=== PATIENT | male | born 1965 | race Caucasian/White ===

== ENCOUNTER 2020-04-12 12:39 | Outpatient (CLI) | payer OTHER, SELFPAY ==
--- NOTE | 2020-04-12 12:42 | CT_ITS ---
WS: [id number] LDCT LUNG CANCER SCREENING HISTORY: TOBACCO ABUSE TECHNIQUE: Axial imaging performed from the apices to 1 cm below the costophrenic angles. Coronal and sagittal reformats are submitted with axial MIP series. All CT scans at [facility] use at least one of these dose optimization techniques: automated exposure control; mA and/or kV adjustment per patient size (includes targeted exams where dose is matched to clinical indication); or iterativ e reconstruction. DLP: 61.71 mGy.cm DIvol: 1.58 mGy COMPARISON: None available. Diagnostic quality: Satisfactory Lung Nodules: No noncalcified pulmonary nodules. 3 mm granuloma which is calcified in the posterior L EFT upper lobe. No groundglass attenuation or endobronchial lesions. Lungs: Mild hyperinflation from emphysema. No pneumonia. Heart: Mild enlargement of the heart. There is extensive calcification involving a large portion of t he LEFT main, LEFT anterior descending and circumflex coronary artery. Other findings: Prior cholecystectomy. CT/CT lung screening G0297 IMPRESSION: LUNG-RADS: 1S-Negative with Significant Findings FOLLOW UP: 12 Month: Continue annual screening with LDCT OTHER FINDINGS (S MODIFIER): Significant coronary artery atherosclerosis. Consi johanny evaluation by cardiology.
== END 2020-04-12 12:40 | disposition home or self-care (01) ==
LOC: RAD 12:40
PROVIDERS: PCP Internal Medicine; Visit Provider Internal Medicine
DX: Z12.2 Encounter for screening for malignant neoplasm of respiratory organs (principal); F17.200 Nicotine dependence, unspecified, uncomplicated; I25.10 Atherosclerotic heart disease of native coronary artery without angina pectoris
CPT/HCPCS: G0297

== ENCOUNTER 2021-07-14 11:52 | Outpatient (CLI) | payer OTHER, SELFPAY ==
--- NOTE | 2021-07-14 12:02 | CT_ITS ---
WS: [id number] LDCT LUNG CANCER SCREENING HISTORY: NICOTINE DEPENDENCE,CIGARETTES TECHNIQUE: Axial imaging performed from the apices to 1 cm below the costophrenic angles. Coronal and sagittal reformats are submitted with axial MIP series. All CT scans at [facility] use at least one of these dose optimization techniques: automated exposure control; mA and/or kV adjustment per patient size (includes targeted exams where dose is matched to clinical indication); or iterativ e reconstruction. DLP: 87.3 mGy-cm. DIvol: 1.58 COMPARISON: 04/12/2020 Diagnostic quality: Satisfactory Lung Nodules: There is a 3 mm nodule which may be calcified in the periphery of the LEFT lower lobe, image 140 of series 4. May have been present on the prior study but due to volume averaging not image d. This is a very small nodule. There is an additional 3 mm nodule which is not calcified on image 12 5 series 4 LEFT lower lobe. This is also stable. Benign granuloma LEFT upper lobe. There is a thin se ptation through the proximal RIGHT mainstem bronchus. Lungs: Hyperexpanded from emphysema. Heart: Heart is very mildly enlarged. No effusion. Other findings: No adenopathy. Mild atherosclerosis aorta. Normal size pulmonary artery. There is ext ensive coronary artery atherosclerosis. CT/CT lung screening [id number] IMPRESSION: LUNG-RADS: 2S-Benign Appearance or Behavior with Significant Findings FOLLOW UP: 12 Month: Continue annual screening with LDCT OTHER FINDINGS (S MODIFIER): There is extensive coronary artery atherosclerosis . Most significant in the LEFT anterior descending and LEFT circumflex coronary artery. Consider evaluation by cardiology.
== END 2021-07-14 11:53 | disposition home or self-care (01) ==
LOC: RAD 11:54
PROVIDERS: PCP Internal Medicine; Visit Provider Internal Medicine
DX: Z12.2 Encounter for screening for malignant neoplasm of respiratory organs (principal); F17.200 Nicotine dependence, unspecified, uncomplicated; Z11.52 Encounter for screening for COVID-19
CPT/HCPCS: 71271; 87635

== ENCOUNTER 2021-07-21 07:32 | Day surgery (SDC) | payer OTHER, SELFPAY ==
[2021-07-17 10:55] VITALS: BMI 25.7
--- NOTE | 2021-07-21 07:59 | P.ANESASSM_ITS ---
Pre-Anesthetic Assessment Height/Weight: Height 1.83 m Weight 86.183 kg Preop Diagnosis: diagnostic Operation Date: 07/21/21 09:00 Proposed Procedures p Colonoscopy 88346/z12.11/z86.010(Not Applicable) - George Fishman MD Familial anesthetic complications: none Was Beta Genet taken within 24 hours: Yes Was Clonidine taken within 24 hours: N/A Last intake: 07/20/21 Social No alcohol and No tobacco Exam alert, oriented x 3, clear to auscultation bilaterally and regular rate & rhythm Airway Submandibular: within normal limits Cervical ROM: within normal limits Mallampati: Class III Dentition: chipped Pulmonary Sleep Apnea CV/HEM Hypertension and Myocardial Infarction (S/P PTCA) METS > 4 None reported Hepatic None reported GI None reported Metabolic None reported Musc/skel None reported Neuropsych Bipolar Anesthetic Plan Anesthesia: Anesthesia Evaluation and MAC Other: I discussed with the patient risks, goals, and benefits of MAC and general anest hesia. We discussed spectrum of MAC anesthesia including conversion to general as well as possibility of recall of intraoperative stimuli including discomfort/pain. Patient agrees to proceed with MAC. Risk of > 500 ml blood loss (7ml/kg in children): No Medications/Allergies Home Medications Medication Instructions Recorded Confirmed Last Taken Type aspirin 81 mg tablet,delayed 81 mg PO DAILY 10/18/19 07/17/21 07/20/21 History release (Adult Low Dose Aspirin) levothyroxine 50 mcg tablet 50 mcg PO DAILY 10/18/19 07/17/21 07/20/21 History (Synthroid) tamsulosin 0.4 mg capsule 0.4 mg PO DAILY 10/18/19 07/17/21 07/20/21 History nicotine See Rx Instructions TRANSDERMAL 02/10/21 07/17/21 Unknown Rx 21mg/24hr-14mg/24hr-7mg/24hr daily .COMPLEX #56 patch transderm patches,sequentl atorvastatin 20 mg tablet 20 mg PO DAILY #90 tab 05/19/21 07/17/21 07/20/21 Rx lisinopril 5 mg tablet 5 mg PO DAILY #90 tab 05/19/21 07/17/21 07/21/21 Rx metoprolol succinate 25 mg 25 mg PO DAILY #90 tab 05/19/21 07/17/21 07/20/21 Rx tablet,extended release 24 hr Allergies Allergy/AdvReac Type Severity Reaction Status Date / Time No Known Allergies Allergy Verified 07/17/21 10:53 [facility] Anesthesia Medical History Arteriosclerosis of coronary artery Bipolar disorder HTN (hypertension) Hypercholesterolemia VENKAT (obstructive sleep apnea) Surgical History History of colonoscopy 2015 History of esophagogastroduodenoscopy S/P PTCA (percutaneous transluminal coronary angioplasty) Status post laparoscopic cholecystectomy Family History Other CAD (coronary artery disease) Cancer Diabetes Family history of premature coronary artery disease Hyperlipidemia Hypertension Denies family history of Dementia Chronic kidney disease (CKD) Lung disease Stroke Social History Smoking and tobacco status: former smoker Alcohol intake: current Alcohol intake frequency: holidays/special occasions only Data Anesthesia Cardiac Studies: No Data to Display
[2021-07-21 08:15] VITALS: BP 125/71; PULSE 71; RESP 18; TEMP 36.3; O2SAT 98
[2021-07-21] MEDS: sodium chloride 0.9% 1,000 ML 30 ML IV (08:22)
--- NOTE | 2021-07-21 08:52 | W.PM.OPSFHP ---
Same Day Surgery H&P Indication for Procedure/HPI DATE OF PROCEDURE: July 21, 2021 CHIEF COMPLAINT/INDICATIONFOR SURGICAL PROCEDURE: colonoscopy PREOP DIAGNOSIS: diagnostic PLANNED PROCEDURE: Operation Date: 07/21/21 09:00 Proposed Procedures p Colonoscopy 51115/z12.11/z86.010(Not Applicable) - George Fishman MD Medications/Allergies* Home Medications Medication Instructions Recorded Confirmed Type aspirin 81 mg tablet,delayed 81 mg PO DAILY 10/18/19 07/17/21 History release (Adult Low Dose Aspirin) levothyroxine 50 mcg tablet 50 mcg PO DAILY 10/18/19 07/17/21 History (Synthroid) tamsulosin 0.4 mg capsule 0.4 mg PO DAILY 10/18/19 07/17/21 History Allergies/Adverse Reactions Allergy/AdvReac Type Severity Reaction Status Date / Time No Known Allergies Allergy Verified 07/17/21 10:53 Current Medications: Generic Name Dose Route Start Last Admin Trade Name Freq PRN Reason Stop Dose Admin Sodium Chloride 1,000 mls @ 30 mls/hr 07/21/21 07:45 07/21/21 08:22 Sodium Chloride 0.9% IV 07/22/21 07:44 30 mls/hr .Q24H VERNELL Administration Pertinent History/Comorbid Conditions* Medical History (Updated 06/13/21 @ 13:35 by George Fishman MD) Arteriosclerosis of coronary artery Bipolar disorder HTN (hypertension) Hypercholesterolemia VENKAT (obstructive sleep apnea) Surgical History (Updated 06/13/21 @ 13:35 by George Fishman MD) History of colonoscopy 2015 History of esophagogastroduodenoscopy S/P PTCA (percutaneous transluminal coronary angioplasty) Status post laparoscopic cholecystectomy Family History (Updated 05/08/20 @ 15:08 by Mulu Kennedy RN) Diabetes CAD (coronary artery disease) Hyperlipidemia Family history of premature coronary artery disease Cancer Hypertension Denies family history of Dementia Chronic kidney disease (CKD) Lung disease Stroke Social History Smoking and tobacco status: former smoker Alcohol intake: current Alcohol intake frequency: holidays/special occasions only Pertinent Exam Findings alert, oriented x 3 and regular rate & rhythm Recommendations Surgery/Procedure today Coding Level of Care Code Acute 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
[2021-07-21 09:17] VITALS: BP 88/68; PULSE 76; RESP 18; TEMP 36.1; O2SAT 97
--- NOTE | 2021-07-21 09:33 | ECG_ITS ---
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 Measurements Intervals [place] Rate: 67 P: 0 [place]: 171 QRS: 5 QRSD: 94 T: -17 QT: 411 QTc: 437 Interpretive Statements SINUS RHYTHM MODERATE ST DEPRESSION [0.05+ mV ST DEPRESSION] Compared to ECG 01/28/2016 10:51:01 ST (T wave) deviation now present Electronically Signed On 07-21-2021 22:03:58 CDT by Erlin Benites M.D. [email or web address] [facility].ZPower/store/OM/[id number]/[id number]
[2021-07-21 09:35] VITALS: BP 107/68; PULSE 77; RESP 18; TEMP 36.1; O2SAT 100
--- NOTE | 2021-07-21 09:37 | PC.NURSE ---
patient post colonoscopy waking up started complaining of burning chest pain blood pressure 98/[address] Fishman notified. Ekg obtained and order for tums. Will let anesthesia know of issues.
[2021-07-21 09:51] VITALS: BP 127/74; PULSE 74; RESP 18; TEMP 36.1; O2SAT 100
--- NOTE | 2021-07-21 09:51 | PC.NURSE ---
informed Dr. Guzman of events and EKG given to him. Dr. Guzman to see patient before discharging.
[2021-07-21] MEDS: calcium carbonate 500 mg Chew Tablet 1000 MG PO (09:58)
--- NOTE | 2021-07-21 10:11 | PC.NURSE ---
patient blood pressure 127/74 heart rate 70. Patient states chest burning is gone some burning in the abdomen. Patient received tums per orders. Awaiting Dr. Guzman to see patient before discharging home.
--- NOTE | 2021-07-21 12:04 | ANE.PACU2 ---
Inpatient post-anesthesia follow up: Airway intact: Yes Vital signs: Temperature 97 F Pulse Rate 74 Respiratory Rate 18 Blood Pressure 127/74 Pulse Oximetry 100 Oxygen Delivery Me thod Room Air Oxygen Flow Rate Fraction of Inspir ed Oxygen Hydration adequate: Yes Nausea and vomiting: No Pain level: 1 Mental status: Baseline Additional Comments: Patient noted some chest burning immediately post procedure. Tums administered, patient sat up, EKG completed. On my assessment patent feeling much better. When he sat up burning moved to stomach away from chest. No diaphoresis, jaw/arm pain, arrhythmias, nausea. EKG showed minimal EKG depression. Suspect gas pain related to colonoscopy vs transient myocardial demand ischemia favoring gas pain given relief with Tums and redistrubution of pain with change in positioning. Patient would like to be discharged. I discussed with patient signs and symptoms of cardiac ischemia and advised patient to call emergency response or go to ER if any of these symptoms present. Patient plans to see PCP later this week.
== END 2021-07-21 10:31 | disposition home or self-care (01) ==
PROVIDERS: Surgery; PCP Internal Medicine; Visit Provider Internal Medicine
PROC: 0DJD8ZZ Inspection of Lower Intestinal Tract, Via Natural or Artificial Opening Endoscopic (ICD-10-PCS; CPT 45378; principal; 2021-07-21 09:00)
DX: Z12.11 Encounter for screening for malignant neoplasm of colon (principal); K64.8 Other hemorrhoids; I10 Essential (primary) hypertension; Z79.82 Long term (current) use of aspirin; E78.00 Pure hypercholesterolemia, unspecified; G47.33 Obstructive sleep apnea (adult) (pediatric)
CPT/HCPCS: 45378; 93005; J2704; J7030

== ENCOUNTER 2021-08-11 08:02 | Outpatient (CLI) | payer OTHER, SELFPAY ==
[2021-08-11 08:40] VITALS: BMI 26.4
--- NOTE | 2021-08-11 09:38 | ECG_ITS ---
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 Interpretive Statements NAME OF STUDY: EXERCISE SESTAMIBI STRESS TEST INDICATION: Chest Pain, PROCEDURE: The baseline electrocardiogram showed [normal sinus rhythm with some nonspecific ST-T changes in inferior leads. At the baseline, the patient's blood pressure was 198/57 mm Hg with a heart rate of 78. The patient exercised for 8 minutes and 59 seconds on a standard Geremias protocol. Patient attained a maximum heart rate of 145 beats per minute(88% of the maximum predicted heart rate) with a blood pressure at the peak exercise of 174/65 mm Hg. The EKG at the peak exercise revealed no significant changes. Patient did not have any chest pain or any significant arrhythmis with the exercise Sestamibi was injected 1 minute prior to the peak exercise During the recovery phase, there were no new changes. Blood pressure at the end of the recovery phase was 116/72 mm Hg with a heart rate of 93 per minute. CONCLUSION: 1. No significant EKG changes with the [treadmill exercise 2. No exercise-induced chest pain or cardiac arrhythmia 3. Fair exercise tolerance, attained a maximum of 10.2 METs 4. Sestamibi/Sestamibi perfusion results pending; see separate report. Electronically Signed On 08-12-2021 8:30:10 CDT by Anjel Hill M.D. [email or web address].Bi[employer]/store/OM/[id number]
--- NOTE | 2021-08-11 09:38 | NMCV_ITS ---
NM amaris perf SPECT r/s* [id number] Noe Urieb Age: 55 Gender: M : 1965 Exam Date: 08/11/2021 09:46 Ordering Phys: Fernando Pate MD ([email or web address]) Technologist: NEMESIO Danielle Exam Location: [facility] Indications: ATHEROSCLEROTIC HEART DISEASE OF [place] CORONARY ARTERY STRESS TEST Please see separate stress test report in [facility] for full findings IMAGE PROTOCOL Rest/Stress 1 Exercise Day Radiopharmaceutical Dose (mCi) Administration Site Administered by Rest: Tc-99m 11.0 IV NEMESIO Carlson Sestamibi Stress:Tc-99m 32.7 IV NEMESIO Contreras Sestamibi Rest: 11-Aug-2021 60 Discovery 630 Stress: 11-Aug-2021 15 Discovery 630 Radiopharmaceutical was injected at 85 % maximum heart rate. Images obtained in supine and prone position. SPECT RESULTS Technical Quality: Excellent Raw Data Analysis: Normal Image Corrections: No attenuation or motion correction applied Summed Stress Score: 0 Summed Rest Score: 1 Summed Difference Score: 0 PERFUSION FINDINGS Patchy areas of slightly decreased tracer uptake were noted in the inferior wall, anterior wall and apical regions. No significant reversibility was noted in these regions. FUNCTIONAL RESULTS (calculated via Gated SPECT) Stress Image LV EF (%): 65 Stress EDV (mL):135 TID: 0.95 Stress ESV (mL):47 FUNCTIONAL FINDINGS: Segmental wall motion analysis revealing no gross wall motion abnormalities IMPRESSIONS 1. Myocardial perfusion imaging revealing patchy areas of persistent decreased tracer uptake in the anterior wall, inferior wall and apical regions suggesting myocardial scarring versus attenuation artifact. 2. Normal LV ejection fraction of 65%. 3. Segmental wall motion analysis revealing no gross wall motion abnormalities. 4. Near normal LV volume. No significant coronary ischemia, based on the above findings Dr Anjel Hill MD [facility] (Electronically Signed) Final Date: 11 August 2021 17:09 S
[2021-08-11 10:40] VITALS: BP 116/72; PULSE 83
== END 2021-08-11 08:03 | disposition home or self-care (01) ==
PROVIDERS: PCP Internal Medicine; Visit Provider Internal Medicine Cardiovascular Disease
DX: R07.9 Chest pain, unspecified (principal); I25.10 Atherosclerotic heart disease of native coronary artery without angina pectoris
CPT/HCPCS: 78452; 93017; A9500

== ENCOUNTER 2022-08-13 16:47 | Emergency (ER) | payer SELFPAY ==
[2022-08-13] VITALS (7 sets, daily range): BP systolic 116–138; BP diastolic 72–89; PULSE 87–93; RESP 16; TEMP 36.6; O2SAT 96–98
--- NOTE | 2022-08-13 16:51 | ECG_ITS ---
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 Measurements Intervals [place] Rate: 83 P: 137 [place]: 175 QRS: 128 QRSD: 95 T: -24 QT: 351 QTc: 413 Interpretive Statements SINUS RHYTHM ARM LEADS REVERSED [INVERTED P AND QRS IN I] INTERPRETATION BASED ON A DEFAULT AGE OF 40 YEARS Compared to ECG 07/21/2021 08:40:28 ST (T wave) deviation no longer present Electronically Signed On 08-14-2022 1:34:44 CDT by Anjel Hill M.D. [email or web address]/store/[id number] jose
--- NOTE | 2022-08-13 16:51 | ECG_ITS ---
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 Measurements Intervals [place] Rate: 83 P: 137 [place]: 175 QRS: 128 QRSD: 95 T: -24 QT: 351 QTc: 413 Interpretive Statements SINUS RHYTHM ARM LEADS REVERSED [INVERTED P AND QRS IN I] Nonspecific ST-T changes INTERPRETATION BASED ON A DEFAULT AGE OF 40 YEARS Compared to ECG 07/21/2021 08:40:28 ST (T wave) deviation no longer present Electronically Signed On 08-14-2022 22:17:59 CDT by Anjel Hill M.D. [email or web address].Natanael Ulien/store/NU/[id number] f
--- NOTE | 2022-08-13 17:54 | XRR_ITS ---
PROCEDURE INFORMATION: Exam: XR Chest Exam date and time: 08/13/2022 6:01 PM Age: 56 years old Clinical indication: Pain; Chest pressure; Additional info: Chest pain TECHNIQUE: Imaging protocol: Radiologic exam of the chest. Views: 1 view. COMPARISON: CT lung screening [id number] 07/14/2021 12:10 PM FINDINGS: Lungs: Unremarkable. No consolidation. Pleural spaces: Unremarkable. No pleural effusion. No pneumothorax. Heart/Mediastinum: Unremarkable. No cardiomegaly. Bones/joints: Unremarkable. XR/XR chest 1V portable [id number] IMPRESSION: No acute findings.
--- NOTE | 2022-08-13 18:14 | W.ED.CHESTPA ---
HPI - Chest Pain General: Chief Complaint: Chest Pain Stated Complaint: chest discomfort Time Seen by Provider: 08/13/22 17:48 Source: patient Mode of arrival: ambulatory Limitations: no limitations History of Present Illness: 56-year-old male states that he has been having chest pain over the last 3 days he states it first for like reflux and he did take Tums and it was improved he states that today the Tums did not help so he took a nitro and it improved. He states intermittent nature he states it is a burning type pain in his chest he had a slight cough as well he is a chronic smoker as he felt he had some wheezing as well. Denies any fever Associated symptoms: Deny abdominal pain, dyspnea, fever(s), nausea or vomiting Review of Systems Const: Denies: fever(s), chills or body aches Eyes: Denies: eye discomfort ENMT: Denies: throat pain or dental pain Card: Reports: chest pain Resp: Reports: non-productive cough; Denies: dyspnea GI: Denies: abdominal pain, nausea, vomiting or diarrhea Musc: Denies: neck pain or back pain Skin/Breast: Denies: rash Neuro: Denies: headache(s) PFSH ED PFSH: Medical History Arteriosclerosis of coronary artery Bipolar disorder Fatigue HTN (hypertension) Hypercholesterolemia VENKAT (obstructive sleep apnea) SOB (shortness of breath) Tobacco abuse Surgical History History of colonoscopy 2015 - 5mm polyp 2021 - normal History of esophagogastroduodenoscopy S/P PTCA (percutaneous transluminal coronary angioplasty) Status post laparoscopic cholecystectomy Family History Other CAD (coronary artery disease) Cancer Diabetes Family history of premature coronary artery disease Hyperlipidemia Hypertension Denies family history of Dementia Chronic kidney disease (CKD) Lung disease Stroke Social History Smoking and tobacco status: former smoker Alcohol intake: current Alcohol intake frequency: holidays/special occasions only Substance/Drug Use: never Course Vital Signs: Vital signs: Vital Signs Temperature 97.8 F 08/13/22 16:54 Pulse Rate 89 08/13/22 21:06 Respiratory Rate 16 08/13/22 21:06 Blood Pressure 135/74 08/13/22 21:06 Pulse Oximetry 97 08/13/22 21:06 Oxygen Delivery Me thod Room Air 08/13/22 18:26 MDM - Chest Pain Medical Decision Making Patient presents here with chest pain is atypical in nature is been going on for 3 days his troponins here are negative he had a negative stress test last year as well. GI cocktail did improve his pain we will start him on Protonix he has a slight cough and wheezing as well did give a dose of Decadron we will place him on albuterol for home he she has an appoint with cardiology next week he is to follow-up as scheduled return if worsening he understands agrees to plan. Medical Records I reviewed the patient's medical records. Lab Data I reviewed the patient's lab results. 08/13/22 18:44 08/13/22 18:44 Radiology Impressions Chest X-Ray 08/13/22 17:54 IMPRESSION: No acute findings. Laboratory Results WBC 8.4 10^3/uL (4.0-10.0) 08/13/22 18:44 RBC 5.08 10^6/uL (4.1-5.3) 08/13/22 18:44 Hgb 16.3 g/dL (11.7-16.6) 08/13/22 18:44 Hct 48.2 % (42.0-52.0) 08/13/22 18:44 MCV 94.9 fl (80-94) H 08/13/22 18:44 MCH 32.1 pg (28.0-34.0) 08/13/22 18:44 MCHC 33.8 g/dL (30.0-36.0) 08/13/22 18:44 RDW 12.2 % (12.1-15.1) 08/13/22 18:44 Plt Count 213 10^3/cmm (130-400) 08/13/22 18:44 MPV 9.7 fL (7.4-10.4) 08/13/22 18:44 Neut % (Auto) 54.4 % 08/13/22 18:44 Lymph % (Auto) 32.5 % 08/13/22 18:44 Merrick % (Auto) 8.6 % 08/13/22 18:44 Eos % (Auto) 2.9 % 08/13/22 18:44 Baso % (Auto) 0.6 % 08/13/22 18:44 Neut # (Auto) 4.55 10^3/uL (1.8-7.7) 08/13/22 18:44 Lymph # (Auto) 2.7 10^3/uL (0.8-4.8) 08/13/22 18:44 Merrick # (Auto) 0.7 10^3/uL (0.2-0.9) 08/13/22 18:44 Eos # (Auto) 0.2 10^3/uL (0.0-0.8) 08/13/22 18:44 Baso # (Auto) 0.1 10^3/uL (0.0-0.1) 08/13/22 18:44 Nucleated RBC % (auto) 0 % 08/13/22 18:44 Nucleated RBCs # 0.0 /100WBC 08/13/22 18:44 Sodium 141 mmol/L (136-145) 08/13/22 18:44 Potassium 4.1 mmol/L (3.5-5.1) 08/13/22 18:44 Chloride 104 mmol/L (98-107) 08/13/22 18:44 Carbon Dioxide 27 mmol/L (22-29) 08/13/22 18:44 Anion Gap 14.1 (5-19) 08/13/22 18:44 BUN 15 mg/dL (6-20) 08/13/22 18:44 Creatinine 0.9 mg/dL (0.7-1.2) 08/13/22 18:44 GFR Calculation 87.0 mL/min (90-130) L 08/13/22 18:44 Glucose 82 mg/dL (65-115) 08/13/22 18:44 Calculated Osmolality 292 mOsm/kg (285-295) 08/13/22 18:44 Calcium 9.4 mg/dL (8.5-10.5) 08/13/22 18:44 Total Bilirubin 0.2 mg/dL (0.15-1.2) 08/13/22 18:44 AST 17 U/L (0-40) 08/13/22 18:44 ALT 19 U/L (0-41) 08/13/22 18:44 Alkaline Phosphatase 62 U/L (40-130) 08/13/22 18:44 Troponin T Baseline 27 ng/L (0-15) H 08/13/22 18:44 Troponin T 120 Minute 31.66 ng/L (0-15) H 08/13/22 20:52 Delta Troponin T 4.66 ABS# (0-10) 08/13/22 20:52 Total Protein 7.0 g/dL (6.6-8.7) 08/13/22 18:44 Albumin 4.1 g/dL (3.5-5.2) 08/13/22 18:44 Globulin 2.9 g/dL (1.3-4.6) 08/13/22 18:44 EKG Data EKG 1: I personally reviewed and interpreted this EKG as follows: EKG interpretation date: 08/13/22 EKG interpretation time: 16:51 Interpretation: nsr hr [address] or t wave abnormalities qrs 95 qtc 390 Discharge Plan Discharge Patient Disposition: Home Clinical Impression: Chest pain Condition: Stable Prescriptions: New Protonix 40 mg tablet,delayed release (DR/EC) 40 mg PO DAILY Qty: 60 0RF albuterol sulfate 90 mcg/actuation HFA aerosol inhaler 2 inh INHALATION Q6H PRN (Reason: shortness of breath or wheezing) Qty: 8 0RF No Action aspirin [Adult Low Dose Aspirin] 81 mg tablet,delayed release (DR/EC) 81 mg PO DAILY levothyroxine [Synthroid] 50 mcg tablet 50 mcg PO DAILY tamsulosin 0.4 mg capsule 0.4 mg PO DAILY nicotine 21-14-7 mg/24 hr patch, TD daily, sequential See Rx Instructions transdermal .COMPLEX Qty: 56 0RF Rx Instructions: apply 1-21 mg NICOTINE PATCH daily for 28 days; follow with 1-14 mg PATCH daily for 14 days, then 1-7mg PATCH daily for 14 days transdermal Biote Hormone pellet therapy See Rx Instructions .ROUTE .COMPLEX Rx Instructions: 1 dose intradermally every 5 1/2 months nitroglycerin 0.4 mg tablet, sublingual 0.4 mg sublingual Q5M PRN (Reason: chest pain) Qty: 25 1RF Rx Instructions: do not exceed 3 doses per episode lisinopril 5 mg tablet 5 mg PO DAILY Qty: 90 2RF atorvastatin 20 mg tablet 20 mg PO DAILY Qty: 90 0RF Rx Instructions: MUST have follow-up for further refills metoprolol succinate 25 mg tablet extended release 24 hr 25 mg PO DAILY Qty: 30 0RF Rx Instructions: Pt Needs to make appt for F/U Zyrtec 10 mg Tablet 10 mg PO DAILY vitamin A 10,000 unit Capsule 10,000 unit PO DAILY ZzzQuil 25 mg Capsule 25 mg PO BEDTIME Vitamin D3 10 mcg (400 unit) Capsule 10 mcg PO DAILY vitamin K2 45 mcg Capsule 45 mcg PO DAILY Discharge Orders: Discharge ED (Routine); Ordered 08/13/22 Ordered By: Mark Chao Referrals: Lynette Gutiérrez MD [Primary Care Provider] - Discharge Diet: Advance as tolerated Discharge Activity: Resume usual activity Patient Instructions: Chest Pain (ED) Coding Level of Care Code ED Punch Out 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
[2022-08-13] MEDS: ipratropium-albuterol 3 mL Neb INHALATION (18:26)
[2022-08-13] MEDS: aspirin 81 mg Chew Tablet 324 MG PO (18:57)
[2022-08-13 19:05] LABS: Basophils # 0.1 10^3/uL (0.0-0.1); Basophils % 0.6 %; Eosinophils # 0.2 10^3/uL (0.0-0.8); Eosinophils % 2.9 %; Hematocrit 48.2 % (42.0-52.0); Hemoglobin 16.3 g/dL (11.7-16.6); Lymphocytes # 2.7 10^3/uL (0.8-4.8); Lymphocytes % 32.5 %; Mean Corpuscular HGB Conc 33.8 g/dL (30.0-36.0); Mean Corpuscular Hemoglobin 32.1 pg (28.0-34.0); Mean Corpuscular Volume 94.9 fl (80-94); Mean Platelet Volume 9.7 fL (7.4-10.4); Monocytes # 0.7 10^3/uL (0.2-0.9); Monocytes % 8.6 %; Neutrophils # 4.55 10^3/uL (1.8-7.7); Neutrophils % 54.4 %; Nucleated Red Blood Cells % 0 %; Platelet Count 213 10^3/cmm (130-400); Red Blood Count 5.08 10^6/uL (4.1-5.3); Red Cell Distribution Width 12.2 % (12.1-15.1); White Blood Count 8.4 10^3/uL (4.0-10.0)
[2022-08-13 19:29] LABS: Troponin(5th) Baseline 27 ng/L (0-15)
[2022-08-13 19:32] LABS: Alanine Aminotransferase 19 U/L (0-41); Albumin Level 4.1 g/dL (3.5-5.2); Alkaline Phosphatase 62 U/L (40-130); Anion Gap 14.1 (5-19); Aspartate Amino Transferase 17 U/L (0-40); Blood Urea Nitrogen 15 mg/dL (6-20); Calcium 9.4 mg/dL (8.5-10.5); Carbon Dioxide 27 mmol/L (22-29); Chloride 104 mmol/L (98-107); Globulin 2.9 g/dL (1.3-4.6); Glucose 82 mg/dL (65-115); Osmolality Calculated 292 mOsm/kg (285-295); Potassium 4.1 mmol/L (3.5-5.1); Sodium 141 mmol/L (136-145); Total Bilirubin 0.2 mg/dL (0.15-1.2)
[2022-08-13] MEDS: lidocaine 2% viscous 15 ML, aluminum-mag hydrox-simethicon 30 ML, sucralfate oral liq 1 GM PO (21:04)
[2022-08-13 21:19] LABS: Troponin 5 2HR 31.66 ng/L (0-15)
[2022-08-13 21:30] LABS: Troponin 5 2HR Delta 4.66 ABS# (0-10)
[2022-08-13] MEDS: dexamethasone 10 mg/mL INJ IVP (21:41)
== END 2022-08-13 21:58 | disposition home or self-care (01) ==
PROVIDERS: Family Medicine; Emergency Provider Emergency Medicine; PCP Internal Medicine
DX: R07.9 Chest pain, unspecified (principal); Z79.82 Long term (current) use of aspirin; Z87.891 Personal history of nicotine dependence; I10 Essential (primary) hypertension
CPT/HCPCS: 71045; 80053; 84484; 85025; 93005; 94640; 96374; 99285; J1100